=== PATIENT | female | born 1925 | race Caucasian/White ===

== ENCOUNTER 2017-06-01 14:55 | Outpatient (CLI) | payer MEDICARE, OTHER ==
[2017-06-01 15:43] LABS: #Basophils 0.1 thou/uL (0.0-0.2); #Eosinphils 0.1 thou/uL (0.0-0.7); #Lymphocytes 1.7 thou/uL (1.20-3.40); #Monocytes 0.5 thou/uL (0.11-0.59); #Neutrophils 3.8 thou/uL (1.40-6.50); %Basophils 1.5 % (0.0-1.0); %Eosinophils 1.3 % (0.0-10.0); %Lymphocytes 27.9 % (21.0-51.0); %Monocytes 7.2 % (0.0-10.0); Hemoglobin 12.1 g/dL (12.0-16.0); Mean Corpuscular HGB CONC 32.8 g/dL (32.0-36.0); Mean Corpuscular Hemoglobin 29.9 pg (27.0-31.0); Mean Corpuscular Volume 91.2 fl (81.0-99.0); Mean Platelet Volume 6.7 fL (7.4-10.4); Platelet Count 217 thou/uL (130-400); RBC Distribution Width 11.9 % (11.5-14.5); Red Blood Cell (RBC) Count 4.05 mill/uL (4.20-5.40); White Blood Cell (WBC) Count 6.2 thou/uL (4.8-10.8)
[2017-06-01 15:54] LABS: Hemoglobin A1c 5.4 % (4.0-6.0)
[2017-06-01 16:05] LABS: Bilirubin Negative (Negative); Blood, Urine Trace (Negative); Clarity Clear (Clear); Glucose, Urine (Dipstick) Negative (Negative); Leukocyte Small (Negative); Nitrite Negative (Negative); Protein, Urine (Dipstick) Negative (Neg-Trace); Urobilinogen 0.2 mg/dL (0.2-1.0)
[2017-06-01 16:32] LABS: Bacteria/HPF Rare-Few HPF (None Seen); RBC/HPF 0-3 HPF (0-3); Squamous Epithelial 0-3 HPF (0-3)
[2017-06-01 16:57] LABS: ALT (SGPT) 12 U/L (8-55); AST (SGOT) 17 U/L (5-34); Albumin 4.3 g/dL (3.4-4.8); Alkaline Phosphatase 57 U/L (40-150); Anion Gap 15 mmol/L (10-20); BUN (Urea Nitrogen) 20 mg/dL (9.8-20.1); Bilirubin, Total 0.4 mg/dL (0.2-1.2); Calc. Creatinine Clearance 0 mL/min (70-130); Calcium 9.6 mg/dL (7.8-10.44); Carbon Dioxide 25 mmol/L (23-31); Chloride 106 mmol/L (98-107); Cholesterol 275 mg/dl (< 200 Desired); Estimated GFR-MDRD 55; Globulin 2.4 g/dL (2.4-3.5); Glucose 86 mg/dL (83-110); HDL Cholesterol 55 mg/dL (>60 Neg Risk); LDL Cholesterol, Calculated 193 mg/dL; Potassium 4.3 mmol/L (3.5-5.1); Protein, Total 6.7 g/dL (6.0-8.3); Sodium 142 mmol/L (136-145); Triglycerides 137 mg/dL (Less than 150)
== END 2017-06-01 14:56 | disposition home or self-care (01) ==
LOC: NAVSJIPCSP 14:55 → NAV LAB 14:56
PROVIDERS: ATTEND Internal Medicine
DX: L65.9 Nonscarring hair loss, unspecified (principal); R60.9 Edema, unspecified; I10 Essential (primary) hypertension; E09.65 Drug or chemical induced diabetes mellitus with hyperglycemia
CPT/HCPCS: 36415; 80053; 80061; 81003; 81015; 83036; 83880; 84443; 85025

== ENCOUNTER 2017-08-03 10:18 | Outpatient (CLI) | payer MEDICARE, OTHER | END 2017-08-03 10:19 | disposition home or self-care (01) | LOC: NAVSJIPCSP 10:18 | PROVIDERS: ATTEND Internal Medicine | DX: E03.5 Myxedema coma (principal) | CPT/HCPCS: 36415; 84443 ==